=== PATIENT | female | born 1995 ===

== ENCOUNTER 2018-10-09 10:13 | Emergency (ER) | payer MEDICAID ==
[2018-10-09] MEDS ORDERED: Sodium Chloride 0.9% 1,000 ML IV SCH ×2 (11:15→13:00)
[2018-10-09 12:28] LABS: HEMOGLOBIN A1C 8.6 % (4.50-6.20)
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
[2018-10-09] MEDS ORDERED: Insulin Lispro 100 Units/ML 3 ML Vial SUBCUT ONE (13:57)
[2018-10-09] MEDS ORDERED: Insulin Regular, Human 100 Units/ML 3 ML Vial ONE (14:29)
== END 2018-10-09 17:35 | disposition home or self-care (01) ==
LOC: JD.ED 10:13
DX: R73.9 Hyperglycemia, unspecified (principal); R19.7 Diarrhea, unspecified; R10.31 Right lower quadrant pain; F17.210 Nicotine dependence, cigarettes, uncomplicated
CPT/HCPCS: 36415; 82009; 82800; 82962; 83036; 83930; 96360; 96361; 96372; 99285; J1815; J7040; 99284